=== PATIENT | male | born 1970 | race Caucasian/White ===

== ENCOUNTER 2024-08-20 16:33 | Inpatient (IN) | payer MEDICAID ==
[~2024-08-20] VITALS: Ht 162.6 cm; Wt 77.6 kg
[2024-08-20 19:51] LABS: BASOPHILS % 0.5 % (0.0-2.0); EOSINOPHILS % 0.9 % (0.0-5.0); HEMATOCRIT. 37.1 % (42.0-52.0); HEMOGLOBIN. 12.8 g/dL (14.0-18.0); LYMPHOCYTES % 11.4 % (20.0-50.0); MEAN CORPUSCULAR HEMOGLOBIN 28.7 pg (28.0-32.0); MEAN CORPUSCULAR HGB CONC 34.3 g/dL (31.0-37.0); MEAN CORPUSCULAR VOLUME 83.5 fL (80.0-94.0); MEAN PLATELET VOLUME 6.9 fl (7.4-10.4); MONOCYTES % 6.6 % (2.0-8.0); NEUTROPHILS % 80.6 % (40.0-76.0); PLATELET 446 x1000/uL (130-400); RED BLOOD CELL COUNT 4.45 mill/uL (4.7-6.1); RED CELL DISTRIBUTION WIDTH 12.2 % (11.6-14.6); WHITE BLOOD COUNT 11.6 x1000/uL (4.5-11.0)
[2024-08-20 20:00] LABS: POTASSIUM 4.3 mEq/L (3.5-5.1)
[2024-08-20 20:01] LABS: CALCIUM 9.4 mg/dL (8.7-10.4)
[2024-08-20 20:06] LABS: CREATININE 1.3 mg/dL (0.6-1.3)
[2024-08-20 20:08] LABS: ALANINE AMINOTRANSFERASE 27 IU/L (10-49); ALBUMIN 4.2 g/dL (3.2-4.8); ASPARTATE AMINOTRANSFERASE 15 IU/L (<34); BILIRUBIN DIRECT 0.1 mg/dL (<=3.0)
[2024-08-20 20:09] LABS: BILIRUBIN TOTAL 0.4 mg/dL (0.1-1.0); PROTEIN TOTAL 7.7 g/dL (6.0-8.3)
[2024-08-20 20:20] LABS: PROTHROMBIN TIME 10.9 sec (9.6-11.0)
[2024-08-20] MEDS: PIPERACILLIN/TAZO 3.375G/50ML 50 ML IV NR (20:29)
[2024-08-20] MEDS: SODIUM CHLORIDE 0.9% 1,000 ML IV ONE (20:29)
[2024-08-20] MEDS ORDERED: PIPERACILLIN/TAZO 3.375G/100ML 100 ML IV ONE (22:00)
[2024-08-21] MEDS: VANCOMYCIN 1G PREMIX 200 ML IV ONE (02:36)
[2024-08-21] MEDS: VANCOMYCIN 1G PREMIX 200 ML IV NR (02:36)
[2024-08-21] MEDS: INSULIN GLARGINE 100 UNITS/ML SUBCUT SCH (10:00)
[2024-08-21] MEDS ORDERED: DEXTROSE 50% WATER 50ML SYRINGE IV PRN (10:00)
[2024-08-21 10:02] VITALS: BP 156/95; PULSE 95; RESP 18; TEMP 36.6
[2024-08-21] MEDS: PIPERACILLIN/TAZO 3.375G/50ML 50 ML IV SCH (10:31)
[2024-08-21 12:00] VITALS: BP 135/87; PULSE 89; RESP 19; TEMP 36.4; O2SAT 99
[2024-08-21] MEDS: BLOOD SUGAR DIAGNOSTIC STRIP TEST SCH (12:40)
[2024-08-21] MEDS: AMLODIPINE 10MG TABLET PO SCH (12:41)
[2024-08-21] MEDS: VANCOMYCIN 750MG/150ML (BAXTER) IV SCH (12:48)
[2024-08-21] MEDS: INSULIN LISPRO 100 UNITS/ML SUBCUT SCH (13:17)
[2024-08-21 16:00] VITALS: BP 124/77; PULSE 95; RESP 19; TEMP 36.7; O2SAT 98
[2024-08-21 20:00] VITALS: BP 117/54; PULSE 94; RESP 18; TEMP 36.8; O2SAT 100
[2024-08-22 04:00] VITALS: BP 115/74; PULSE 88; RESP 18; TEMP 36.7; O2SAT 95
[2024-08-22 08:00] VITALS: BP 122/76; PULSE 90; RESP 18; O2SAT 97
[2024-08-22 08:08] LABS: BASOPHILS % 0.5 % (0.0-2.0); EOSINOPHILS % 2.4 % (0.0-5.0); HEMATOCRIT. 32.5 % (42.0-52.0); HEMOGLOBIN. 11.4 g/dL (14.0-18.0); LYMPHOCYTES % 16.9 % (20.0-50.0); MEAN CORPUSCULAR HEMOGLOBIN 29.3 pg (28.0-32.0); MEAN CORPUSCULAR HGB CONC 34.9 g/dL (31.0-37.0); MEAN PLATELET VOLUME 7.2 fl (7.4-10.4); MONOCYTES % 7.9 % (2.0-8.0); NEUTROPHILS % 72.3 % (40.0-76.0); PLATELET 368 x1000/uL (130-400); RED BLOOD CELL COUNT 3.87 mill/uL (4.7-6.1); RED CELL DISTRIBUTION WIDTH 12.5 % (11.6-14.6); WHITE BLOOD COUNT 8.8 x1000/uL (4.5-11.0)
[2024-08-22 08:09] LABS: CHLORIDE 105 mEq/L (98-107); SODIUM 139 mEq/L (136-145)
[2024-08-22 08:10] LABS: CALCIUM 8.8 mg/dL (8.7-10.4); CARBON DIOXIDE 27 mEq/L (21-32)
[2024-08-22 08:15] LABS: UREA NITROGEN BLOOD 13 mg/dL (9-23)
[2024-08-22 08:33] LABS: GLUCOSE 136 mg/dL (70-105)
[2024-08-22 12:00] VITALS: BP 122/77; PULSE 93; RESP 16; O2SAT 98
[2024-08-22] MEDS ORDERED: IOHEXOL-350 100 ML BOTTLE ONE (13:46)
[2024-08-22] MEDS: VANCOMYCIN 750MG/150ML (BAXTER) IV SCH (18:50)
[2024-08-22 20:00] VITALS: BP 123/76; PULSE 83; RESP 16; TEMP 36.1; O2SAT 98
[2024-08-23] VITALS: BP 124/80; PULSE 87; RESP 20; TEMP 36.9; O2SAT 96
[2024-08-23 04:00] VITALS: BP 138/81; PULSE 76; RESP 18; TEMP 36.3; O2SAT 99
[2024-08-23 08:00] VITALS: BP 127/80; PULSE 91; RESP 17; TEMP 36.7; O2SAT 97
[2024-08-23] MEDS: ASPIRIN 81MG TABLET PO SCH (08:40)
[2024-08-23 12:00] VITALS: BP 121/80; PULSE 90; RESP 18; TEMP 36.7; O2SAT 96
[2024-08-23 13:40] LABS: BASOPHILS % 0.4 % (0.0-2.0); EOSINOPHILS % 2.7 % (0.0-5.0); HEMATOCRIT. 37.9 % (42.0-52.0); HEMOGLOBIN. 12.6 g/dL (14.0-18.0); LYMPHOCYTES % 18.1 % (20.0-50.0); MEAN CORPUSCULAR HEMOGLOBIN 28.1 pg (28.0-32.0); MEAN CORPUSCULAR HGB CONC 33.3 g/dL (31.0-37.0); MEAN CORPUSCULAR VOLUME 84.3 fL (80.0-94.0); MEAN PLATELET VOLUME 6.6 fl (7.4-10.4); MONOCYTES % 6.6 % (2.0-8.0); NEUTROPHILS % 72.2 % (40.0-76.0); PLATELET 455 x1000/uL (130-400); RED BLOOD CELL COUNT 4.49 mill/uL (4.7-6.1); RED CELL DISTRIBUTION WIDTH 12.6 % (11.6-14.6); WHITE BLOOD COUNT 7.5 x1000/uL (4.5-11.0)
[2024-08-23 13:58] LABS: CHLORIDE 104 mEq/L (98-107); POTASSIUM 3.6 mEq/L (3.5-5.1); SODIUM 138 mEq/L (136-145)
[2024-08-23 13:59] LABS: CARBON DIOXIDE 28 mEq/L (21-32)
[2024-08-23 14:04] LABS: CREATININE 0.9 mg/dL (0.6-1.3); GLUCOSE 155 mg/dL (70-105); UREA NITROGEN BLOOD 13 mg/dL (9-23)
[2024-08-23 14:06] LABS: CREATINE KINASE 47 IU/L (46-171)
[2024-08-23 14:51] LABS: ERYTHROCYTE SEDIMENTATION RATE 90 mm/hr (0-20)
[2024-08-23 16:00] VITALS: BP 118/79; PULSE 92; RESP 17; TEMP 36.5; O2SAT 98
[2024-08-23 20:00] VITALS: BP 120/77; PULSE 91; RESP 19; TEMP 36.8; O2SAT 97
[2024-08-24] VITALS: BP 115/78; PULSE 84; RESP 19; TEMP 36.7; O2SAT 95
[2024-08-24 04:00] VITALS: BP 116/55; PULSE 88; RESP 19; TEMP 36.8; O2SAT 97
[2024-08-24] MEDS ORDERED: LIDOCAINE HCL 1% 10 MG/ML 10ML VIAL ONE (07:27)
[2024-08-24 08:00] VITALS: BP 129/85; PULSE 87; RESP 18; TEMP 36.6; O2SAT 97
[2024-08-24 12:00] VITALS: BP 122/72; PULSE 88; RESP 18; TEMP 36.5; O2SAT 97
[2024-08-24 16:00] VITALS: BP 118/68; PULSE 88; RESP 18; TEMP 36.7; O2SAT 97
[2024-08-24 20:00] VITALS: BP 117/79; PULSE 91; RESP 18; TEMP 37.3; O2SAT 98
[2024-08-25] VITALS: BP 116/80; PULSE 85; RESP 18; TEMP 36.9; O2SAT 96
[2024-08-25 04:00] VITALS: BP 114/80; PULSE 85; RESP 18; TEMP 36.6; O2SAT 98
[2024-08-25 08:00] VITALS: BP 116/77; PULSE 84; RESP 18; TEMP 36.1; O2SAT 100
[2024-08-25 12:00] VITALS: BP 117/77; PULSE 91; RESP 18; TEMP 36.3; O2SAT 98
[2024-08-25 13:34] VITALS: BP 117/77; PULSE 91; TEMP 97.5; O2SAT 98
== END 2024-08-25 14:30 | disposition home health service (06) | DRG 197 ==
LOC: ER 16:33 → 6EST 20:19 → EDBEDREQ 20:21 → EDBEDREQTM 20:21 → EDBEDREQSVC 20:21
PROVIDERS: ADMIT Internal Medicine; ATTEND Internal Medicine
PROC: 02HV33Z Insertion of Infusion Device into Superior Vena Cava, Percutaneous Approach (ICD-10-PCS; principal; 2024-08-24)
PROC: B548ZZA Ultrasonography of Superior Vena Cava, Guidance (ICD-10-PCS; 2024-08-24)
PROC: B5181ZA Fluoroscopy of Superior Vena Cava using Low Osmolar Contrast, Guidance (ICD-10-PCS; 2024-08-24)
DX: E11.52 Type 2 diabetes mellitus with diabetic peripheral angiopathy with gangrene (principal); I70.262 Atherosclerosis of native arteries of extremities with gangrene, left leg; E11.621 Type 2 diabetes mellitus with foot ulcer; M86.8X7 Other osteomyelitis, ankle and foot; L97.529 Non-pressure chronic ulcer of other part of left foot with unspecified severity; E11.69 Type 2 diabetes mellitus with other specified complication; E11.65 Type 2 diabetes mellitus with hyperglycemia; I10 Essential (primary) hypertension
CPT/HCPCS: 36415; 36573; 73630; 73718; 75635; 80048; 80076; 80202; 82550; 82962; 83036; 83605; 84145; 85025; 85651; 93005; 93923; 99285; A4606; C1725; J1815; J2003; J2543; J3370; J7030; Q9967